=== PATIENT | female | born 2000 | race Caucasian/White ===

== ENCOUNTER 2021-09-13 15:03 | Emergency (ER) | payer OTHER ==
[~2021-09-13] VITALS: Ht 165.1 cm; Wt 100.0 kg
[2021-09-13 15:18] VITALS: BP 114/74
[2021-09-13] MEDS ORDERED: ACETAMINOPHEN 325MG TABLET PO ONE (15:30)
[2021-09-13] MEDS ORDERED: BACITRACIN ZINC OINT UDPKT TOP ONE (15:30)
[2021-09-13] MEDS ORDERED: TETANUS, DIPHTHERIA, PERTUSSIS VAC/PF 0.5ML (>10YR OLD) IM ONE (15:30)
[2021-09-13] MEDS ORDERED: BO1 TP ×3 (16:47→16:50)
[2021-09-13] MEDS ORDERED: AMOX-424 MT ×4 (16:47→17:11)
== END 2021-09-13 17:25 | disposition home or self-care (01) ==
LOC: ER 15:03
DX: S61.431A Puncture wound without foreign body of right hand, initial encounter (principal); W55.01XA Bitten by cat, initial encounter; Y93.89 Activity, other specified; Y92.89 Other specified places as the place of occurrence of the external cause; Y99.8 Other external cause status
CPT/HCPCS: 73130; 90471; 90715; 99283